=== PATIENT | male | born 1995 | race Caucasian/White ===

== ENCOUNTER 2018-02-09 16:53 | Emergency (ER) | payer BC, SELFPAY ==
[2018-02-09 16:54] VITALS: BP 163/86; PULSE 96; RESP 20; TEMP 37.1; BMI 39.4
[2018-02-09] MEDS: MethylPREDNISolone 125 MG/2 ML Vial IV (17:03)
--- NOTE | 2018-02-09 17:20 | ED.RN ---
PT STATES FEELING BETTER.STATES REMAINS DIZZY BUT SWELLING BETTER
[2018-02-09 18:53] VITALS: BP 130/68; PULSE 79; RESP 24; O2SAT 99
[2018-02-09 20:05] VITALS: BP 126/64; PULSE 85; RESP 19; O2SAT 96
[2018-02-09 20:53] VITALS: BP 141/75; PULSE 85; RESP 18; O2SAT 97
--- NOTE | 2018-02-09 20:53 | ED.DCSUM_ITS ---
- ER Visit Summary Date of Service: 02/09/18 Chief Complaint: [Allergic reaction] History of Present Illness: The patient is a 22 M [presents the emergency department with allergic reaction to a bee sting that occurred about 2 hours ago. Patient was at work when he was stung on his back. Patient complaining of feeling lightheaded and feeling like his tongue is thick. Patient received Benadryl by EMS. Patient denies difficulty breathing at this time. Patient has had significant allergic reactions to bee stings in the past but did not have an EpiPen with him.] Physical Examination: [HEENT-PERRLA, EOMI. Cranial nerves II through XII grossly intact. TMs clear. Mucous membranes moist. No adenopathy. Cardiovascular-regular rate and rhythm without murmur or ectopy Lungs-clear to auscultation, chest wall stable without crepitus or subcu emphysema Abdomen-normoactive bowel sounds, soft, nontender, no rebound or rigidity, no peritoneal signs. Extremities-intact ?4, normal range of motion, normal pulses, atraumatic] Test Results: [None indicated Emergency Department Course and Treatment: [Patient was given Solu-Medrol, Benadryl, and Pepcid.] Treatment Plan: Patient was observed for 4 hours and he had resolution of symptoms. Patient will be dispensed an EpiPen and prednisone for 3 days.] Disposition: [Discharged home in stable condition] Impression: [Allergic reaction to bee sting] This note was generated with [employer] dictation software. It may contain incorrect words, spelling, and punctuation that were not noted in review of the chart prior to signing ED Disposition - Plan for ED Patient: Chief Complaint: Allergic Reaction Referrals: Care Physician,No Primary [Primary Care Provider] -
--- NOTE | 2018-02-09 20:53 | ED.DEP ---
ED Disposition - Plan for ED Patient: Chief Complaint: Allergic Reaction Instructions: ED Bite Sting Insect Gen Allergic React Prescriptions: Prednisone [Deltasone] 20 mg PO BID #6 tab Referrals: Care Physician,No Primary [Primary Care Provider] - [facility] - 3-5 Days
== END 2018-02-09 21:14 | disposition home or self-care (01) ==
PROVIDERS: Emergency Provider Emergency Medicine
DX: T63.441A Toxic effect of venom of bees, accidental (unintentional), initial encounter (principal); R42 Dizziness and giddiness; R22.0 Localized swelling, mass and lump, head; Y92.9 Unspecified place or not applicable; Z87.891 Personal history of nicotine dependence
CPT/HCPCS: 96365; 96372; 96375; 99283

== ENCOUNTER 2023-02-28 21:42 | Emergency (ER) | payer OTHER, SELFPAY ==
[2023-02-28 21:43] VITALS: BP 159/89; PULSE 105; RESP 15; TEMP 37.2; O2SAT 98; BMI 38.5
--- NOTE | 2023-02-28 22:37 | EDS_ITS ---
HPI History of Present Illness Chief Complaint: Fever Informant: patient and spouse/S.O. Onset/Context/Timing Onset: Today and Yesterday Context: Gradual Onset Timing: Continuous Current Severity: Mild Maximum Severity: Mild Narrative Narrative: Healthy 27-year-old male prior tonsillectomy years ago. Since the last 2 days he has not felt well with fever sore throat and body aches. No exposure to anyone else he knows ill. He had a fever as high as 104. He took Tylenol around 7:00 tonight which resolved his fever. States he has diffuse body aches. Today he did develop diarrhea. He had nausea without vomiting. Denies any dysuria. No cough or shortness of breath. No significant abdominal pain. Denies any recent hospitalization. Prior similar symptoms: Yes Recent Illness/Hospitalization: No PFSH PFS Medical History HTN (hypertension) no medical history Home Medications epinephrine 0.3 mg/0.3 mL injection, auto-injector 0.3 mg (0.3 mL) IM X1 ##2 04/24/17 [Rx Last Taken Unknown] omeprazole 40 mg capsule,delayed release 40 mg PO DAILY 02/09/18 [History Last Taken Unknown] Allergy/AdvReac Type Severity Reaction Status Date / Time bee venom protein (honey bee) Allergy Anaphylaxis Verified 02/28/23 21:47 Family History Grandfather Myocardial infarction Surgical History Hx of tonsillectomy Social History household members: family Smoking Status: Never smoker ROS ROS ED ROS Narrative Fever. Diarrhea today. Body aches. Nausea. Review of Systems ROS Unobtainable: Denies due to encephalopathy Constitutional Constitutional ED: Reports fever(s); Denies chills Eyes Eyes: Denies blurry vision ENT ENT ED: Reports sore throat; Denies ear pain or rhinorrhea Cardiovascular Cardiovascular: Denies chest pain Respiratory/Chest Respiratory/Chest: Denies cough Gastrointestinal Gastrointestinal: Reports diarrhea and nausea; Denies abdominal pain, constipation, melena or vomiting Genitourinary Genitourinary ED: Denies dysuria or hematuria Musculoskeletal Musculoskeletal: Denies arthralgias Integumentary Denies abscess Neurologic Neurologic: Denies headache(s) Psychiatric Psychiatric: Denies anxiety Endocrine Endocrinology: Denies cold intolerance Hematologic/Lymphatic Hematologic/Lymphatic: Reports none Allergic/Immunologic Allergic/Immunologic ED: Denies mouth swelling, tongue swelling or urticaria EXAM Physical Exam Narrative Exam Narrative: Well-appearing 27-year-old male. Vital signs stable currently he is afebrile temperature is 99. He does not look septic or toxic. He may be slightly dehydrated. HEENT exam mild dry mucous membranes. TMs normal. Posterior pharynx minimal erythema exudate on his uvula. No tonsils. No trouble swallowing or breathing. No stridor or drooling. Neck nontender no lymphadenopathy. No meningismus. Lungs clear to auscultation. Heart tachycardic rate of 105 no murmur. Chest wall nontender. Abdomen soft nontender. Without peritoneal signs. Moving all 4 extremities. Nontender no e wesley. No rash. Back nontender. Neurologically is awake alert with no focal motor deficits. Benign exam. Const Vital Signs: 02/28/23 21:43 02/28/23 22:11 03/01/23 00:49 Temperature 98.9 F 99.3 F H Temperature Source Oral Oral Pulse Rate 105 H 96 Respiratory Rate 15 15 Respiratory Effort Normal Respiratory Pattern Normal Blood Pressure 159/89 H 140/81 H Blood Pressure Mean 112 100 Pulse Ox 98 95 Oxygen Delivery Method Room Air Room Air Positive well nourished and well developed; Negative for cachectic, contractures or unkempt General Appearance ED: well developed and NAD; Negative for unkempt, cachectic, contractures, cyanotic, diaphoretic or pallor Nutritional Appearance: Negative for cachectic HEENT Reports dry mucous membranes; Denies moist mucous membranes Negative for trauma or tenderness Mouth ED: Yes dry mucous membranes Mouth: dry mucous membranes Eyes PERRL and EOMs intact bilaterally General Eye ED: Negative for pale conjunctiva or scleral icterus Neck supple and no JVD General: Negative for tenderness Chest Wall inspection of chest normal and palpation of chest normal Chest: Negative for other Resp normal respiratory effort and clear to auscultation bilaterally Effort and Inspection: Negative for retractions Auscultation: Negative for rales, rhonchi or wheezes Cardio regular rhythm, S1 normal heart sound, S2 normal heart sound and no murmurs; Negative for regular rate Rate: tachycardic GI normal to inspection, nondistended, normoactive bowel sounds, non-tender, non- distended and no masses Auscultation: normoactive bowel sounds Palpation: soft; Negative for tender or guarding Back/Spine no CVA tenderness General Back: Negative for CVA tenderness or other Cervical Spine: Negative for cervical spine tenderness Thoracic Spine / Upper Back: Negative for thoracic spinal tenderness Lumbar Spine / Lower Back: Negative for lumbar spinal tenderness Extremity normal to inspection General Extremety ED: Negative for edema or tenderness General Extremity: Negative for edema Neuro oriented x3 and CN's II-XII intact bilaterally Sensorium / Orientation: alert; Negative for orientation impaired, lethargic or stuporous Motor Exam: strength 5/5 throughout Psych mental status grossly normal Appearance: Negative for unkempt Attitude: No agitated Mood & Affect: Negative for depressed, anxious or tearful Skin no rashes or lesions noted and no wounds General Skin Exam: Negative for jaundice or pallor Lesions: No lesion noted Rashes: No rashes noted Trauma: Negative for abrasion Wounds: Negative for wounds noted MDM MDM MDM Narrative Medical decision making narrative: 27-year-old healthy male fever with nausea and diarrhea. Most likely viral syndrome. He does have limited exudate and erythematous posterior pharynx. Rapid strep will be obtained. COVID and influenza be obtained. Treated with IV fluids. IV Zofran. His lungs are clear he has no complaint of cough or shortness of breath I do not think he needs a chest x-ray. He has no abdominal pain I do not think he needs any abdominal imaging. He is having no urinary tract symptoms. Repeat exam patient is doing well at 1:10 AM. We went over his test results. His repeat exam is unchanged and benign. They are comfortable being discharged home. He will be given a work excuse. History & Record Review Discussion w/independent historian: Patient and Family Lab Data Attestation: I reviewed the patient's lab results. Lab results narrative: Rapid COVID is negative. Flu negative. Rapid strep is negative. Discharge Plan Triage Chief Complaint: Fever ED Provider: Jefferson Simon Dx/Rx/DC Orders Clinical Impression: Viral syndrome, Fever Instructions: ED Viral Syndrome (Adult) Prescriptions: No Action epinephrine 0.3 MG syringe 0.3 mg IM X1 Qty: 2 0RF omeprazole 40 MG capsule,delayed release(DR/EC) 40 mg PO DAILY Label Comments: Primary Care Provider: Saeid Boyd Referrals: Saeid Boyd MD [Primary Care Provider] - 3-5 Days if not improving Care Physician,No Primary [Non-Staff] - Activity Restrictions/Additional Instructions: Most likely you have a virus. Your flu, COVID and strep test were all negative. Plenty of fluids and rest. Alternate Tylenol and Motrin for fever and body aches. Follow-up with your doctor if not improving or return if worse. Disposition Disposition: Home, Self Care
[2023-02-28] MEDS: Ondansetron 4 MG/2 ML Vial IV (23:02)
[2023-02-28] MEDS: 0.9% Normal Saline 1,000 ML 1000 ML IV (23:02)
[2023-03-01 00:49] VITALS: BP 140/81; PULSE 96; RESP 15; TEMP 37.4; O2SAT 95
[2023-03-01 01:10] VITALS: BP 140/81; PULSE 96; RESP 15; O2SAT 95
== END 2023-03-01 01:25 | disposition home or self-care (01) ==
PROVIDERS: Emergency Provider Emergency Medicine; PCP Family Medicine; Visit Provider Emergency Medicine
DX: B34.9 Viral infection, unspecified (principal); I10 Essential (primary) hypertension; R50.9 Fever, unspecified
CPT/HCPCS: 87428; 87880; 96361; 96374; 99282; J7030; A4216; J2405